=== PATIENT | male | born 1980 | race Caucasian/White ===

== ENCOUNTER 2018-07-23 15:14 | Emergency (ER) | payer MEDICAID ==
[~2018-07-23] VITALS: Ht 188 cm; Wt 74.8 kg
[2018-07-23 15:20] VITALS: BP 110/77
[2018-07-23] MEDS ORDERED: GABAPENTIN 400 MG CAP PO ONE (19:45)
== END 2018-07-24 00:05 | disposition home or self-care (01) ==
LOC: ER 15:20
DX: M54.5 Low back pain (principal); G89.29 Other chronic pain; Z76.0 Encounter for issue of repeat prescription

== ENCOUNTER 2019-09-06 14:06 | Emergency (ER) | payer SELFPAY ==
[~2019-09-06] VITALS: Ht 188 cm; Wt 59.0 kg
[2019-09-06 14:16] VITALS: BP 141/75
== END 2019-09-06 15:25 | disposition home or self-care (01) ==
LOC: ER 14:06
DX: F20.9 Schizophrenia, unspecified (principal); F32.9 Major depressive disorder, single episode, unspecified; F12.10 Cannabis abuse, uncomplicated; Z88.5 Allergy status to narcotic agent